=== PATIENT | female | born 1995 | race Caucasian/White ===

== ENCOUNTER 2017-05-05 18:52 | Emergency (ER) | payer OTHER ==
[~2017-05-05] VITALS: Ht 162.6 cm; Wt 66.6 kg
[~2017-05-05 18:52] MED LIST: BIRTH CONTROL PILL; CONCERTA18 MG PO; DOXYCYCLINE 10100 MG PO; FLAGYL500 MG PO; MACROBID 1100 MG/CAP PO; MIRENA52 MG IU; MONONESSA 35 MC1 TA1 PO; ULTRAM 50MG TAB50 MG PO; VENTOLIN0.09 MG IH; ZITHROMAX Z PA250 MG PO
[2017-05-05 19:07] VITALS: BP 112/82; PULSE 72; TEMP 99
== END 2017-05-05 20:15 | disposition home or self-care (01) ==
LOC: COL.ER 18:52
DX: R19.7 Diarrhea, unspecified (principal); J45.909 Unspecified asthma, uncomplicated; Z96.22 Myringotomy tube(s) status; Z98.890 Other specified postprocedural states

== ENCOUNTER 2018-01-10 20:00 | Emergency (ER) | payer SELFPAY ==
[~2018-01-10] VITALS: Ht 160 cm; Wt 71.8 kg
[2018-01-10 20:01] VITALS: BP 119/69; PULSE 107; TEMP 98.8
== END 2018-01-10 20:36 | disposition home or self-care (01) ==
LOC: COL.ER 20:00
DX: S90.01XA Contusion of right ankle, initial encounter (principal); Z23 Encounter for immunization; W20.8XXA Other cause of strike by thrown, projected or falling object, initial encounter

== ENCOUNTER 2018-02-23 17:58 | Emergency (ER) | payer SELFPAY ==
[~2018-02-23] VITALS: Ht 160 cm; Wt 68.2 kg
[2018-02-23 18:02] VITALS: BP 115/65
[2018-02-23 18:43] VITALS: PULSE 93; TEMP 99.6
== END 2018-02-23 18:43 | disposition home or self-care (01) ==
LOC: COL.ER 17:58
DX: J02.9 Acute pharyngitis, unspecified (principal); F90.9 Attention-deficit hyperactivity disorder, unspecified type; J06.9 Acute upper respiratory infection, unspecified

== ENCOUNTER 2018-08-11 07:17 | Emergency (ER) | payer SELFPAY ==
[~2018-08-11] VITALS: Ht 165.1 cm; Wt 68.2 kg
[2018-08-11 07:26] VITALS: BP 123/61; TEMP 98.9
[2018-08-11 07:41] LABS: COLLECTION METHOD CLEAN CATCH
[2018-08-11 07:54] LABS: MUCOUS Present /lpf; PH 5 (5-8); SQUAMOUS EPITHELIAL 20-50 /hpf; URINE APPEARANCE Cloudy; URINE BACTERIA Rare /hpf; URINE BILIRUBIN Positive (NEGATIVE); URINE BLOOD Negative (NEGATIVE); URINE COLOR Amber; URINE GLUCOSE Negative (NEGATIVE); URINE KETONE Negative (NEGATIVE); URINE LEUKOCYTE ESTERASE 3+ (NEGATIVE); URINE NITRATE Negative (NEGATIVE); URINE PROTEIN(semi-quant) 1+ (NEGATIVE)
[2018-08-11] MEDS ORDERED: BACTRIM DS 8001 TAB PO (09:23)
[2018-08-11] MEDS ORDERED: PYRIDIUM200 M1 PO (09:23)
[2018-08-11 09:25] VITALS: PULSE 84
== END 2018-08-11 09:28 | disposition home or self-care (01) ==
LOC: COL.ER 07:17
PROVIDERS: Family Medicine
DX: N39.0 Urinary tract infection, site not specified (principal); Z90.89 Acquired absence of other organs; Z96.22 Myringotomy tube(s) status; Z88.0 Allergy status to penicillin

== ENCOUNTER 2018-09-19 07:43 | Emergency (ER) | payer SELFPAY ==
[~2018-09-19] VITALS: Ht 165.1 cm; Wt 70.1 kg
[~2018-09-19 07:43] MED LIST changes: +BACTRIM DS 8001 TAB PO; +PYRIDIUM200 M1 PO
[2018-09-19 07:46] VITALS: TEMP 98.5
[2018-09-19 08:07] LABS: COLLECTION METHOD CLEAN CATCH
[2018-09-19 08:15] LABS: MUCOUS Present /lpf; PH 5 (5-8); URINE APPEARANCE Hazy; URINE BACTERIA Rare /hpf; URINE BILIRUBIN Negative (NEGATIVE); URINE BLOOD 3+ (NEGATIVE); URINE COLOR Yellow; URINE GLUCOSE Negative (NEGATIVE); URINE KETONE Negative (NEGATIVE); URINE LEUKOCYTE ESTERASE 3+ (NEGATIVE); URINE NITRATE Negative (NEGATIVE); URINE PROTEIN(semi-quant) 2+ (NEGATIVE); URINE RBC >50 /hpf
[2018-09-19] MEDS ORDERED: PYRIDIUM200 M1 PO (08:53)
[2018-09-19] MEDS ORDERED: CEPHALEXIN500 M1 PO (08:53)
[2018-09-19 09:29] VITALS: BP 99/66; PULSE 76
== END 2018-09-19 09:29 | disposition home or self-care (01) ==
LOC: COL.ER 07:43
PROVIDERS: Emergency Medicine
DX: N39.0 Urinary tract infection, site not specified (principal); Z88.0 Allergy status to penicillin; Z90.89 Acquired absence of other organs

== ENCOUNTER 2019-04-10 07:11 | Emergency (ER) | payer MEDICAID ==
[~2019-04-10] VITALS: Ht 162.6 cm; Wt 80.5 kg
[~2019-04-10 07:11] MED LIST changes: +CEPHALEXIN500 M1 PO
[2019-04-10] MEDS ORDERED: PRENATAL MVI (08:00)
[2019-04-10 08:07] LABS: COLLECTION METHOD CLEAN CATCH
[2019-04-10 08:10] LABS: BASO # 0.1 (0.0-0.2); BASO % 0.5 % (0.0-2.0); EOS # 0.2 (0.0-0.7); EOS % 1.7 % (0-4.0); GRAN # 7.6 (1.4-6.5); GRAN % 69.9 % (42.2-75.2); HEMOGLOBIN 12.8 g/dl (12.5-16.0); LYMPH # 2.5 (1.2-3.4); LYMPH % 22.7 % (20.0-51.0); MEAN CELL VOLUME 88 fl (80.0-100.0); MEAN CORPUSCULAR HEMOGLOBIN 29 pg (27.0-31.0); MEAN CORPUSCULAR HGB CONC 33 g/dl (33.0-37.0); MEAN PLATELET VOLUME 10.8 fl (7.4-10.4); MONO # 0.5 (0.1-0.6); MONO % 4.7 % (1.7-9.3); PLATELET COUNT 239 K/mm3 (130-400); RED BLOOD COUNT 4.42 M/mm3 (4.10-5.30); REDCELL DISTRIBUTION WIDTH-CV 13.4 % (11.5-14.5)
[2019-04-10 08:15] LABS: MUCOUS Present /lpf; PH 5 (5-8); URINE APPEARANCE Hazy; URINE BACTERIA Rare /hpf; URINE BILIRUBIN Negative (NEGATIVE); URINE BLOOD 3+ (NEGATIVE); URINE COLOR Yellow; URINE GLUCOSE Negative (NEGATIVE); URINE KETONE Negative (NEGATIVE); URINE LEUKOCYTE ESTERASE Trace (NEGATIVE); URINE NITRATE Negative (NEGATIVE); URINE PROTEIN(semi-quant) Negative (NEGATIVE); URINE RBC >50 /hpf; URINE UROBILINOGEN Negative (NEGATIVE)
[2019-04-10 10:03] VITALS: BP 133/86; PULSE 97; TEMP 98.2
== END 2019-04-10 10:03 | disposition home or self-care (01) ==
LOC: COL.ER 07:11
PROVIDERS: Family Medicine
DX: O20.0 Threatened abortion (principal); Z3A.10 10 weeks gestation of pregnancy

== ENCOUNTER 2019-05-04 12:08 | Emergency (ER) | payer MEDICAID ==
[~2019-05-04] VITALS: Ht 162.6 cm; Wt 84.5 kg
[~2019-05-04 12:08] MED LIST changes: +PRENATAL MVI
[2019-05-04 12:11] VITALS: BP 122/72; TEMP 98.1
[2019-05-04 12:20] LABS: COLLECTION METHOD CLEAN CATCH
[2019-05-04] MEDS ORDERED: MACROBID 1100 MG/CAP PO (12:24)
[2019-05-04] MEDS ORDERED: PYRIDIUM 100MG100 MG PO (12:24)
[2019-05-04 12:43] LABS: MUCOUS Present /lpf; PH 5 (5-8); URINE APPEARANCE Cloudy; URINE BACTERIA None Seen /hpf; URINE BILIRUBIN Negative (NEGATIVE); URINE BLOOD 2+ (NEGATIVE); URINE COLOR Yellow; URINE GLUCOSE Negative (NEGATIVE); URINE KETONE Negative (NEGATIVE); URINE LEUKOCYTE ESTERASE 3+ (NEGATIVE); URINE NITRATE Negative (NEGATIVE); URINE PROTEIN(semi-quant) 2+ (NEGATIVE); URINE RBC >50 /hpf; URINE UROBILINOGEN Negative (NEGATIVE)
[2019-05-04 12:56] VITALS: PULSE 91
== END 2019-05-04 12:53 | disposition home or self-care (01) ==
LOC: COL.ER 12:08
PROVIDERS: Emergency Medicine
DX: N39.0 Urinary tract infection, site not specified (principal)

== ENCOUNTER 2019-09-02 20:19 | Emergency (ER) | payer MEDICAID ==
[~2019-09-02] VITALS: Ht 165.1 cm; Wt 63.6 kg
[~2019-09-02 20:19] MED LIST changes: +PYRIDIUM 100MG100 MG PO
[2019-09-02 20:22] VITALS: BP 108/66; TEMP 97.4
[2019-09-02] MEDS ORDERED: ZOFRAN ODT4 MG PO (21:28)
[2019-09-02 21:31] LABS: COLLECTION METHOD CLEAN CATCH
[2019-09-02 21:39] LABS: MUCOUS Present /lpf; PH 5 (5-8); URINE APPEARANCE Hazy; URINE BACTERIA Rare /hpf; URINE BILIRUBIN Negative (NEGATIVE); URINE BLOOD Negative (NEGATIVE); URINE COLOR Yellow; URINE GLUCOSE Negative (NEGATIVE); URINE KETONE Negative (NEGATIVE); URINE LEUKOCYTE ESTERASE Trace (NEGATIVE); URINE NITRATE Negative (NEGATIVE); URINE PROTEIN(semi-quant) Negative (NEGATIVE); URINE RBC 0-2 /hpf; URINE UROBILINOGEN Negative (NEGATIVE)
[2019-09-02 22:35] VITALS: PULSE 102
== END 2019-09-02 22:35 | disposition home or self-care (01) ==
LOC: COL.ER 20:19
PROVIDERS: Physician Assistant
DX: R11.10 Vomiting, unspecified (principal); R19.7 Diarrhea, unspecified

== ENCOUNTER 2019-11-01 10:03 | Emergency (ER) | payer MEDICAID ==
[~2019-11-01] VITALS: Ht 162.6 cm; Wt 68.2 kg
[~2019-11-01 10:03] MED LIST changes: +ZOFRAN ODT4 MG PO
[2019-11-01 10:12] VITALS: BP 129/81
[2019-11-01 11:06] LABS: BASO # 0.1 (0.0-0.2); BASO % 0.3 % (0.0-2.0); EOS # 0.1 (0.0-0.7); EOS % 0.5 % (0-4.0); GRAN # 11.1 (1.4-6.5); GRAN % 72.2 % (42.2-75.2); HEMATOCRIT 38.7 % (37.0-47.0); HEMOGLOBIN 12.7 g/dl (12.5-16.0); LYMPH # 3.2 (1.2-3.4); LYMPH % 21.1 % (20.0-51.0); MEAN CELL VOLUME 86 fl (80.0-100.0); MEAN CORPUSCULAR HEMOGLOBIN 28 pg (27.0-31.0); MEAN CORPUSCULAR HGB CONC 33 g/dl (33.0-37.0); MEAN PLATELET VOLUME 11.1 fl (7.4-10.4); MONO # 0.9 (0.1-0.6); MONO % 5.6 % (1.7-9.3); PLATELET COUNT 232 K/mm3 (130-400); RED BLOOD COUNT 4.49 M/mm3 (4.10-5.30); REDCELL DISTRIBUTION WIDTH-CV 13.4 % (11.5-14.5)
[2019-11-01] MEDS ORDERED: CEPHALEXIN500 M1 PO (11:50)
[2019-11-01 12:15] VITALS: PULSE 94; TEMP 99.2
== END 2019-11-01 12:15 | disposition home or self-care (01) ==
LOC: COL.ER 10:03
PROVIDERS: Physician Assistant
DX: S70.361A Insect bite (nonvenomous), right thigh, initial encounter (principal); A46 Erysipelas; Y92.89 Other specified places as the place of occurrence of the external cause; W57.XXXA Bitten or stung by nonvenomous insect and other nonvenomous arthropods, initial encounter; Z32.02 Encounter for pregnancy test, result negative
CPT/HCPCS: J0690; J1885; J7030

== ENCOUNTER 2019-11-03 11:44 | Emergency (ER) | payer MEDICAID ==
[~2019-11-03] VITALS: Ht 165.1 cm; Wt 68.2 kg
[2019-11-03 11:57] VITALS: BP 118/68
[2019-11-03] MEDS ORDERED: BACTRIM DS 8001 TAB PO (12:54)
[2019-11-03 13:02] VITALS: PULSE 77; TEMP 97.7
== END 2019-11-03 13:02 | disposition home or self-care (01) ==
LOC: COL.ER 11:44
DX: L03.115 Cellulitis of right lower limb (principal); J45.909 Unspecified asthma, uncomplicated; Z87.891 Personal history of nicotine dependence

== ENCOUNTER 2020-03-05 16:08 | Emergency (ER) | payer MEDICAID ==
[~2020-03-05] VITALS: Ht 165.1 cm; Wt 90.9 kg
[2020-03-05 16:19] VITALS: TEMP 98.2
[2020-03-05] MEDS ORDERED: CEPHALEXIN500 M1 PO (16:36)
[2020-03-05 16:45] VITALS: BP 86/69; PULSE 72
== END 2020-03-05 16:40 | disposition home or self-care (01) ==
LOC: COL.ER 16:08
DX: L02.221 Furuncle of abdominal wall (principal)

== ENCOUNTER 2022-01-23 15:29 | Emergency (ER) | payer MEDICAID ==
[~2022-01-23] VITALS: Ht 165.1 cm; Wt 70.9 kg
[2022-01-23 15:40] VITALS: TEMP 99.4
[2022-01-23 16:47] LABS: BASO % 0.4 % (0.0-2.0); EOS # 0.2 K/mm3 (0.0-0.7); EOS % 2.2 % (0.0-4.0); GRAN # 7.3 K/mm3 (1.4-6.5); GRAN % 76.8 % (42.2-75.2); HEMATOCRIT 46.2 % (37.0-47.0); HEMOGLOBIN 15.6 g/dl (12.5-16.0); LYMPH # 1.4 K/mm3 (1.2-3.4); LYMPH % 14.8 % (20.0-51.0); MEAN CELL VOLUME 84 fl (80.0-100.0); MEAN CORPUSCULAR HEMOGLOBIN 28 pg (27-31); MEAN CORPUSCULAR HGB CONC 34 g/dl (33.0-37.0); MEAN PLATELET VOLUME 11.6 fl (7.4-10.4); MONO # 0.5 K/mm3 (0.1-0.6); MONO % 5.5 % (1.7-9.3); PLATELET COUNT 291 K/mm3 (130-400); RED BLOOD COUNT 5.52 M/mm3 (4.10-5.30); REDCELL DISTRIBUTION WIDTH-CV 13.2 % (11.5-14.5)
[2022-01-23 17:01] LABS: BILIRUBIN,TOTAL 0.5 mg/dL (0.2-1.2); CALCIUM 9.5 mg/dL (8.4-10.2); CREATININE, serum 0.72 mg/dL (0.57-1.11); POTASSIUM 4.3 mmol/L (3.5-4.5)
[2022-01-23 17:57] VITALS: BP 109/57; PULSE 98
== END 2022-01-23 17:58 | disposition home or self-care (01) ==
LOC: COL.ER 15:29
PROVIDERS: Physician Assistant
DX: B34.9 Viral infection, unspecified (principal); Z20.822 Contact with and (suspected) exposure to COVID-19
CPT/HCPCS: J7030